=== PATIENT | male | born 1945 | race Caucasian/White ===

== ENCOUNTER 2016-07-31 08:53 | Inpatient (IN) | payer OTHER ==
[~2016-07-31] VITALS: Ht 175.3 cm; Wt 92.5 kg
[~2016-07-31 08:53] MED LIST: CELEXA20 MG PO; CLARITIN10 M3 PO; LASIX20 MG PO; LIPITOR20 MG PO; LOPRESSOR25 MG PO; PROSCAR5 MG PO; PROTONIX40 MG PO; SPIRIVA1 INHALATI IH; SYMBICORT60 INHALAT IH; TIAZAC420 MG PO; XARELTO20 MG PO
[2016-07-31 09:42] VITALS: BP 126/75
[2016-07-31 09:49] VITALS: BP 126/75
[2016-07-31 15:32] VITALS: BP 104/61
[2016-07-31 19:47] VITALS: BP 117/54
[2016-07-31 23:50] VITALS: BP 95/50
[2016-08-01 04:12] VITALS: BP 105/57
[2016-08-01 06:29] LABS: MCH 33.3 PG (29.0-34.0); MCHC 33.8 G/DL (30.0-36.0); MCV 98.8 FL (86-99); MEAN PLAT.VOLUME 10.5 uM^3 (9.0-12.4); PLATELET COUNT 206 K/uL (156-360); RBC DIS.WIDTH-CV 13.1 % (11.8-14.6); RBC DIS.WIDTH-SD 47.4 % (39-53); RED BLOOD COUNT 4.05 M/uL (4.00-5.50)
[2016-08-01 06:33] LABS: WHITE BLOOD COUNT 13.7 K/uL (4.1-10.2)
[2016-08-01 06:54] LABS: ANION GAP 8 MEQ/L (2-14); CHLORIDE 103 MEQ/L (99-109); GFR ESTIMATE (CALCULATED) > 59 mL/min/; POTASSIUM 4.4 MEQ/L (3.7-5.4); SAMPLE HEMOLYSIS CHECK 0; SAMPLE ICTERIC CHECK 0; SAMPLE LIPEMIA CHECK 0; SODIUM 136 MEQ/L (136-147); UREA NITROGEN (BUN) 11 mg/dL (9-23)
[2016-08-01 06:55] LABS: GLUCOSE 150 mg/dL (70-99)
[2016-08-01 08:22] VITALS: BP 118/73
[2016-08-01 15:34] VITALS: BP 142/86
[2016-08-01 19:46] VITALS: BP 131/79
[2016-08-01 23:50] VITALS: BP 127/90
[2016-08-02 03:40] VITALS: BP 103/56
[2016-08-02 05:40] LABS: HEMATOCRIT 38.6 % (38.0-50.0); MCH 31.6 PG (29.0-34.0); MCHC 32.4 G/DL (30.0-36.0); MCV 97.7 FL (86-99); MEAN PLAT.VOLUME 10.4 uM^3 (9.0-12.4); PLATELET COUNT 203 K/uL (156-360); RBC DIS.WIDTH-CV 13.1 % (11.8-14.6); RBC DIS.WIDTH-SD 47.2 % (39-53); RED BLOOD COUNT 3.95 M/uL (4.00-5.50); WHITE BLOOD COUNT 10.7 K/uL (4.1-10.2)
[2016-08-02 06:02] LABS: ANION GAP 6 MEQ/L (2-14); CHLORIDE 105 MEQ/L (99-109); GFR ESTIMATE (CALCULATED) > 59 mL/min/; GLUCOSE 119 mg/dL (70-99); POTASSIUM 4.2 MEQ/L (3.7-5.4); SAMPLE HEMOLYSIS CHECK 0; SAMPLE ICTERIC CHECK 0; SAMPLE LIPEMIA CHECK 0; SODIUM 138 MEQ/L (136-147); UREA NITROGEN (BUN) 11 mg/dL (9-23)
[2016-08-02 08:33] VITALS: BP 111/76
[2016-08-02 16:45] VITALS: BP 103/62
[2016-08-02 23:03] VITALS: BP 123/68
[2016-08-03 06:28] LABS: HEMATOCRIT 34.4 % (38.0-50.0); MCH 32.4 PG (29.0-34.0); MCHC 33.1 G/DL (30.0-36.0); MCV 97.7 FL (86-99); MEAN PLAT.VOLUME 10.2 uM^3 (9.0-12.4); PLATELET COUNT 203 K/uL (156-360); RBC DIS.WIDTH-CV 13.4 % (11.8-14.6); RBC DIS.WIDTH-SD 47.6 % (39-53); RED BLOOD COUNT 3.52 M/uL (4.00-5.50); WHITE BLOOD COUNT 10.1 K/uL (4.1-10.2)
[2016-08-03 06:53] LABS: ANION GAP 8 MEQ/L (2-14); CHLORIDE 106 MEQ/L (99-109); GFR ESTIMATE (CALCULATED) > 59 mL/min/; GLUCOSE 97 mg/dL (70-99); POTASSIUM 3.9 MEQ/L (3.7-5.4); SAMPLE HEMOLYSIS CHECK 0; SAMPLE ICTERIC CHECK 0; SAMPLE LIPEMIA CHECK 0; SODIUM 139 MEQ/L (136-147); UREA NITROGEN (BUN) 15 mg/dL (9-23)
[2016-08-03 09:07] VITALS: BP 105/58
[2016-08-03 16:10] LABS: HEMATOCRIT 35.2 % (38.0-50.0); MCV 98.9 FL (86-99)
[2016-08-03 17:01] VITALS: BP 123/70
[2016-08-03 21:23] VITALS: BP 118/72
[2016-08-04 08:18] LABS: HEMATOCRIT 29.5 % (38.0-50.0); MCH 32.6 PG (29.0-34.0); MCHC 33.6 G/DL (30.0-36.0); MEAN PLAT.VOLUME 10.4 uM^3 (9.0-12.4); PLATELET COUNT 225 K/uL (156-360); RBC DIS.WIDTH-CV 13.4 % (11.8-14.6); RED BLOOD COUNT 3.04 M/uL (4.00-5.50); WHITE BLOOD COUNT 11.8 K/uL (4.1-10.2)
[2016-08-04 08:26] VITALS: BP 111/80
[2016-08-04 08:45] LABS: ANION GAP 12 MEQ/L (2-14); CHLORIDE 106 MEQ/L (99-109); GFR ESTIMATE (CALCULATED) > 59 mL/min/; GLUCOSE 116 mg/dL (70-99); SAMPLE HEMOLYSIS CHECK 0; SAMPLE ICTERIC CHECK 0; SAMPLE LIPEMIA CHECK 0; SODIUM 138 MEQ/L (136-147)
[2016-08-04 08:46] LABS: UREA NITROGEN (BUN) 23 mg/dL (9-23)
[2016-08-04] MEDS ORDERED: OXYCODONE HCL5 MG PO (13:48)
== END 2016-08-04 14:47 | disposition home or self-care (01) | DRG 330 ==
LOC: 2SOUTH 08:53 → 5EAST 08:53 → 2SOUTH 10:13 → 5EAST 15:01
PROVIDERS: Surgery
DX: D12.0 Benign neoplasm of cecum (principal); K42.9 Umbilical hernia without obstruction or gangrene; L90.5 Scar conditions and fibrosis of skin; D62 Acute posthemorrhagic anemia; K62.5 Hemorrhage of anus and rectum; T45.8X5A Adverse effect of other primarily systemic and hematological agents, initial encounter; L57.0 Actinic keratosis; I48.91 Unspecified atrial fibrillation; I25.2 Old myocardial infarction; J44.9 Chronic obstructive pulmonary disease, unspecified; F32.9 Major depressive disorder, single episode, unspecified; E78.5 Hyperlipidemia, unspecified; K21.9 Gastro-esophageal reflux disease without esophagitis; E66.9 Obesity, unspecified; Z68.30 Body mass index [BMI] 30.0-30.9, adult; Z87.891 Personal history of nicotine dependence
CPT/HCPCS: 36415; 80048; 80053; 82728; 83036 GA; 85014; 85018; 85025; 85025 91; 85027; 88307; 94640; 94640 76; 94799; J0131; J1100; J1170; J1335; J1650; J2250; J2405; J2710; J3010; J7050